=== PATIENT | female | born 1985 | race Caucasian/White ===

== ENCOUNTER → 2019-07-02 09:38 | Outpatient (CLI) | payer OTHER, MEDICAID, SELFPAY ==
--- NOTE | 2019-07-02 09:44 | DI.US.S_ITS ---
PROCEDURE: US OB <= 14 WEEKS FETUS INDICATIONS: DATES OUTSIDE/PRIOR DATING DATA: First dating scan (date and location): 07/02/19. Estimated date of delivery (BASSAM) from first dating scan: 01/06/20. TECHNIQUE: Real-time scanning was performed of the fetus and maternal pelvic organs, with image documentation. Endovaginal scanning was also performed to better visualize the fetus and maternal ovaries. COMPARISON: None. FINDINGS: Embryo: Based on BPD, head circumference, abdominal circumference and femur length the composite gestational age today is 13 weeks 1 day corresponding to some BASSAM of 01/06/20. Heart rate measures 147 beats per minute. Marginal placenta previa is present at this time. Measurement variability in dating: +/- 4 weeks by LMP, +/- 7 days by mean sac diameter (use before 6 weeks gestation if crown-rump length not able to be measured), +/- 5 days by crown-rump length (up to 8 weeks 6 days gestation), +/- 7 days by crown-rump length (up to 13 weeks 6 days gestation). Maternal organs: Adnexa within normal limits. Limited images through the kidneys demonstrate no hydronephrosis. IMPRESSION: 1. 13 week 1 day single living IUP corresponding to ultrasound BASSAM of 01/06/20. 2. Marginal placenta previa. Followup recommended. Dictated by: Arjun FROST Interpreted: Mel Gómez MD on 07/02/2019 at 10:33 Approved by: Mel Gómez M.D. on 07/02/2019 at 14:41
== END ==
PROVIDERS: Visit Provider Specialist
DX: Z34.81 Encounter for supervision of other normal pregnancy, first trimester (principal); Z3A.13 13 weeks gestation of pregnancy
CPT/HCPCS: 76801

== ENCOUNTER → 2019-07-08 11:36 | Outpatient (CLI) | payer OTHER, MEDICAID, SELFPAY ==
[2019-07-08 12:13] LABS: Add Manual Diff / Slide Review NO; Basophils Absolute Auto 0 /uL (0-100); Basophils Percent Auto 0.5 % (0-2); Eosinophils Absolute Auto 100 /uL (0-450); Eosinophils Percent Auto 0.7 % (2-4); Hematocrit 37.5 % (36-46); Hemoglobin 12.7 g/dL (12.0-16.0); Lymphocytes Absolute Auto 1300 /uL (1100-4500); Lymphocytes Percent Auto 16.6 % (25-40); Mean Corpuscular HGB Conc 33.8 % (30-36); Mean Corpuscular Hemoglobin 32.3 PG (26-34); Mean Corpuscular Volume 95.5 fL (80-100); Monocytes Absolute Auto 700 /uL (0-900); Monocytes Percent Auto 8.5 % (3-14); Neutrophils Absolute Auto 5700 /uL (1500-7000); Neutrophils Percent Auto 73.7 % (50-75); Platelet Count 233 X10^3/uL (150-400); Red Blood Cell Count 3.93 X10^6/uL (4.0-5.2); Red Cell Distribution Width 12.5 % (11.6-14.8); White Blood Cell Count 7.7 X10^3/uL (4.5-11.0)
[2019-07-08 12:28] LABS: Appearance Urine UA CLEAR; Bilirubin Urine UA NEGATIVE (NEGATIVE); Color Urine UA YELLOW; Glucose Urine UA NEGATIVE (Negative); Ketones Urine UA NEGATIVE (NEGATIVE); Leukocyte Esterase Urine UA NEGATIVE (NEGATIVE); Nitrite Urine UA NEGATIVE (Negative); Occult Blood Urine UA NEGATIVE (Negative); Protein Urine UA NEGATIVE (Negative); Specific Gravity Urine UA <=1.005 (1.000-1.035); Urobilinogen Urine UA 0.2 E.U./dL (0.2)
[2019-07-08 17:06] LABS: Hepatitis B Surface Antigen NEGATIVE s/c (NEGATIVE); Rubella Antibody IgG > 350.0 IU/mL (>15)
[2019-07-08 17:20] LABS: HIV 1 & 2 Ab/Ag 4th Gen Combo NEGATIVE (NEGATIVE); Hep C Virus Ab w/Reflex Quant NEGATIVE s/c (NEGATIVE)
[2019-07-10 20:02] LABS: RPR Screen Nonreactive (Nonreactive)
== END ==
PROVIDERS: PCP Specialist; Visit Provider Specialist
DX: Z34.81 Encounter for supervision of other normal pregnancy, first trimester (principal)
CPT/HCPCS: 36415; 80055; 81003; 86787; 86803; 86850; 86900; 86901; 87086; 87389

== ENCOUNTER → 2019-08-20 13:38 | Outpatient (CLI) | payer OTHER, MEDICAID, SELFPAY ==
--- NOTE | 2019-08-20 13:41 | DI.US.S_ITS ---
PROCEDURE: US OB >= 14 WEEKS FETUS INDICATIONS: ANATOMY SCAN OUTSIDE/PRIOR DATING DATA: First dating scan (date and location): 07/02/19. Estimated date of delivery (BASSAM) from first dating scan: 01/06/20. TECHNIQUE: Real-time scanning was performed of the fetus, with image documentation and biometric measurements. COMPARISON: [facility], , OB >= 14 WEEKS FETUS, 08/12/2019, 12:13. FINDINGS: General: A single living intrauterine gestation is present. Presentation: Transverse. Placenta: Placental position is anterior and lateral, without previa. Amniotic fluid index: 11.2 cm, normal range is 5-24 cm. heart rate: 145 beats per minute. Maternal cervical canal: 4.1 cm long. Normal lower limit is 2.5 cm. biometrics: Biparietal diameter: 19 weeks 3 days Head circumference: 19 weeks 4 days Abdominal circumference: 19 weeks 5 days Femur length: 19 weeks Estimated gestational age from initial scan: 20 weeks Composite gestational age from present scan: 19 weeks 3 days Estimated weight and percentile: 292 g; 13 percentile Measurement variability for biometric dating: +/- 7 days from 14 weeks to 15 weeks 6 days gestation, +/- 10 days from 16 weeks to 21 weeks 6 days gestation, +/- 2 weeks from 22 weeks to 27 weeks 6 days gestation, +/- 3 weeks for 28 weeks gestation or later. weight reference: 4500 g or EFW >90/95% is considered macrosomia or large for gestational age. EFW <10% is small for gestational age. EFW 5% or less is considered intra-uterine growth restriction. Anatomic survey: Neuro: Ventricles are non-dilated at less than 10 mm. Cisterna magna is normal at 3-11 mm. Cerebellum is normal in size and morphology. Nuchal skin fold: Normal at less than 6 mm between 14-21 weeks gestational age. Face: Nose and lips, facial profile are normal. Spine: No evidence for spina bifida. Heart: 4-chambered heart is present, with normal ventricular outflow tracts. Diaphragm: Diaphragm is intact. Stomach: Left-sided stomach is present. Kidneys: No hydronephrosis. Normal is less than 5 mm in 2nd trimester, less than 7 mm in 3rd trimester. Cord: 3-vessel cord has orthotopic insertion. Bladder: Normal in size. Extremities: All 4 extremities identified. IMPRESSION: 1. Single living demonstrating interval growth with estimated weight at the 13th percentile. Recommend attention on followup. 2. Normal anatomic survey. 3. Resolved marginal placenta previa. Dictated by: Arjun FROST Interpreted: Gio Jj MD on 08/20/2019 at 16:36 Approved by: Gio Jj M.D. on 08/20/2019 at 17:57
== END ==
PROVIDERS: PCP Specialist; Visit Provider Specialist
DX: Z34.82 Encounter for supervision of other normal pregnancy, second trimester (principal); Z3A.19 19 weeks gestation of pregnancy
CPT/HCPCS: 76811

== ENCOUNTER → 2019-09-17 09:19 | Outpatient (CLI) | payer OTHER, MEDICAID, SELFPAY ==
[2019-09-17 11:18] LABS: Hematocrit 34.5 % (36-46)
[2019-09-17 11:23] LABS: GTT (PREG) 1 Hour PP 50gm Dose 102 mg/dL (76-139)
== END ==
PROVIDERS: PCP Specialist; Visit Provider Specialist
DX: Z3A.23 23 weeks gestation of pregnancy (principal); Z34.92 Encounter for supervision of normal pregnancy, unspecified, second trimester
CPT/HCPCS: 36415; 82950; 85014; 85018

== ENCOUNTER → 2019-12-08 11:43 | Outpatient (CLI) | payer OTHER, MEDICAID, SELFPAY ==
[2019-12-09 11:22] LABS: Strep Grp B PCR NEG for Grp B Strep
== END ==
PROVIDERS: PCP Specialist; Visit Provider Specialist
DX: Z34.83 Encounter for supervision of other normal pregnancy, third trimester (principal); Z3A.35 35 weeks gestation of pregnancy
CPT/HCPCS: 87653

== ENCOUNTER 2020-01-11 19:15 | Inpatient (IN) | payer OTHER, MEDICAID, SELFPAY ==
[2020-01-11 19:50] VITALS: BP 152/91
--- NOTE | 2020-01-11 20:33 | PM.OBHP.1 ---
OB HPI Date/Time Date of admission: 01/11/20 Date Patient Seen: 01/11/20 Time Patient Seen: 20:33 History of Present Condition Chief complaint: : 4 Para: 2 Estimated Date of Delivery: 01/06/20 Estimated Gestational Age (weeks): 40 Narrative: Alysia Ramsey is a 34 year old female admitted in active labor History of Present care: good care, initiated at week # (14), number of visits (12) and pounds weight gain (21) Dating criteria: based on 1st trimester US only Ultrasounds: normal mid trimester US Obstetrical complications: none Medical complications: none Preadmission Labs Blood type: A (+) positive -: Antibody screen: negative, GBS status: negative, HBsAG: negative, HIV: negative and RPR/VDLR: negative -: Chlamydia screen: not detected and Gonorrhea screen: not detected -: Rubella: immune and Varicella: immune HCAB: negative PAP: 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) 1 hr GTT: 102 Prior (ies) History: 02/02/2013 39 week gestation male 6 lb 12 oz spontaneous vaginal delivery with Pitocin 04/12/2017 40 weeks 6 lb 14 oz female infant spontaneous vaginal delivery Evaluation Evaluation Baseline heart rate: 130 Variability: Moderate (11-25) monitor accelerations: Present monitor decelerations: Absent Contraction Frequency (minutes): 3 Uterine Contraction Intensity: Strong/Firm Category of Tracing: I Cervical dilation (cm): 6 Cervical effacement (%): 100 station: -4 Non-invasive Membranes Rupture Test: positive PFSH Family History (Updated 07/09/19 @ 12:40 by Cindy Watson) Father Hypertension Hyperlipidemia Stroke Mother Hypertension Grandmother Colon cancer Grandfather Hypertension Grandmother Cancer Social History Smoking Status: Never smoker Meds Home Medications and Allergies Home Medications Medication Instructions Recorded Confirmed Type prenat.vits,swetha,[id number] 1 tab PO DAILY 07/08/19 01/11/20 History Allergies Allergy/AdvReac Type Severity Reaction Status Date / Time No Known Drug Allergies Allergy Verified 01/11/20 19:49 Review of Systems Review of Systems Narrative: Patient denies headaches, scotomata, epigastric pain. She woke with trickling of fluid at 6:00 a.m.. She started having increased strength of contractions at 3:00 p.m. today. Good movement. ROS: Yes All systems reviewed with the patient and are negative except as otherwise documented Exam Vital Signs (past 8 hours): Blood pressure 139/82, pulse of 56, temperature 98.5?- 01/11/20 19:50 Blood Pressure 152/91 H Narrative Exam Narrative: HEENT exam within normal limits. Lungs are clear to auscultation percussion. Heart is regular rate and rhythm no S3-S4 or murmurs. Abdomen is gravid. Fetus is vertex. Extremities without edema, nontender. Assessment and Plan Assessment and Plan Assessment and Plan narrative: Term with spontaneous rupture membranes in active labor. Anticipate vaginal delivery.
[2020-01-11 20:41] LABS: Add Manual Diff / Slide Review NO; Basophils Absolute Auto 0 /uL (0-100); Basophils Percent Auto 0.4 % (0-2); Eosinophils Absolute Auto 0 /uL (0-450); Eosinophils Percent Auto 0.3 % (2-4); Hematocrit 38.5 % (36-46); Hemoglobin 12.5 g/dL (12.0-16.0); Lymphocytes Absolute Auto 2200 /uL (1100-4500); Lymphocytes Percent Auto 19.6 % (25-40); Mean Corpuscular HGB Conc 32.4 % (30-36); Mean Corpuscular Hemoglobin 28.3 PG (26-34); Mean Corpuscular Volume 87.2 fL (80-100); Monocytes Absolute Auto 900 /uL (0-900); Neutrophils Absolute Auto 7900 /uL (1500-7000); Neutrophils Percent Auto 71.7 % (50-75); Platelet Count 232 X10^3/uL (150-400); Red Blood Cell Count 4.41 X10^6/uL (4.0-5.2); Red Cell Distribution Width 13.6 % (11.6-14.8); White Blood Cell Count 11.1 X10^3/uL (4.5-11.0)
--- NOTE | 2020-01-11 22:38 | P.PCNOB_ITS ---
Labor & Delivery Delivery date: 01/11/20 Intrapartal events: None Delivery monitor: external FHT and external uterine Route of delivery: L&D Laceration Description: None Estimated blood loss (mL): 100 Anesthesia type: None Narrative: Patient arrived on Labor and delivery in active labor. She had intermittent monitoring that was reassuring. She had a very quick 2nd stage of labor. She delivered spontaneously, over an intact perineum a viable female infant who was placed on the maternal abdomen. There was a nuchal cord that was released after the baby was delivered. After the cord stopped pulsating the cord was clamped, cut, and cord bloods obtained. The placenta delivered spontaneously, intact, with 3 vessels. There were no cervical, vaginal, or ainsley krissy tears. Both mother doing well. Baby 1: Infant gender: Female Presentation: vertex position: Right Occiput Anterior Placenta delivery description: Spontaneous cord vessel description: Nuchal Cord score (1 min): 9 score (5 min): 9 Plan for aftercare: Routine care
[2020-01-11] MEDS: IBUPROFEN 600 MG TABLET PO (23:34)
[2020-01-11] MEDS: ACETAMINOPHEN 325 MG TABLET 650 MG PO (23:34)
[2020-01-12 06:48] LABS: Add Manual Diff / Slide Review NO; Basophils Absolute Auto 0 /uL (0-100); Basophils Percent Auto 0.4 % (0-2); Eosinophils Absolute Auto 0 /uL (0-450); Eosinophils Percent Auto 0.2 % (2-4); Hematocrit 34.9 % (36-46); Hemoglobin 11.4 g/dL (12.0-16.0); Lymphocytes Absolute Auto 1700 /uL (1100-4500); Lymphocytes Percent Auto 14.2 % (25-40); Mean Corpuscular HGB Conc 32.7 % (30-36); Mean Corpuscular Hemoglobin 28.5 PG (26-34); Mean Corpuscular Volume 87.2 fL (80-100); Monocytes Absolute Auto 1000 /uL (0-900); Monocytes Percent Auto 8.8 % (3-14); Neutrophils Absolute Auto 9000 /uL (1500-7000); Neutrophils Percent Auto 76.4 % (50-75); Platelet Count 212 X10^3/uL (150-400); Red Cell Distribution Width 12.9 % (11.6-14.8); White Blood Cell Count 11.8 X10^3/uL (4.5-11.0)
--- NOTE | 2020-01-12 16:19 | PM.OBDS.1 ---
Discharge Providers Provider Date of admission: 01/11/20 19:15 Discharge Date: 01/12/20 Primary care physician: Edith Alfaro MD Consults: 01/12/20 22:34 Consult to [employer] Routine Comment: Discharge provider: Edith Alfaro MD Summary Hospital Course Date Patient Seen: 01/12/20 Time Patient Seen: 16:19 Procedures: Spontaneous vaginal delivery Hospital Course: Patient arrived on Labor and delivery in active labor. She had a spontaneous vaginal delivery of a viable female weighing 6 lb 6 oz. She denies any headaches, scotomata, epigastric pain. She is urinating and ambulating well. She is breast-feeding without difficulty. Peripartum Data Infant Delivery Method: Natural Vaginal Laceration description: None Procedures: Spontaneous vaginal delivery complications: none [place] 1: Gender: Female Disposition of : home Discharge Diagnosis (1) Vaginal delivery: Status: Acute Status at Discharge Cognitive/behavioral status at discharge: oriented Functional status at discharge: independent ambulation Overall status at discharge: patient is progressing back to baseline Time Spent with Patient Time attestation: Total time spent providing and/or coordinating discharge services: Time spent: Less than 30 minutes Objective Labs Result Diagrams: 01/12/20 06:32 Labs: Laboratory Results - last 24 hr 01/11/20 01/11/20 01/12/20 20:00 20:00 06:32 WBC 11.1 H 11.8 H RBC 4.41 4.00 Hgb 12.5 11.4 L Hct 38.5 34.9 L MCV 87.2 87.2 MCH 28.3 28.5 MCHC 32.4 32.7 RDW 13.6 12.9 Plt Count 232 212 Neut % (Auto) 71.7 76.4 H Lymph % (Auto) 19.6 L 14.2 L Door % (Auto) 8.0 8.8 Eos % (Auto) 0.3 L 0.2 L Baso % (Auto) 0.4 0.4 Neut # (Auto) 7900 H 9000 H Lymph # (Auto) 2200 1700 Door # (Auto) 900 1000 H Eos # (Auto) 0 0 Baso # (Auto) 0 0 Blood Type A Positive Antibody Screen Negative Exam Vital Signs (past 8 hours): Blood pressure 116/60, pulse of 58, temperature 98.7? Narrative Exam Narrative: Abdomen is soft, nontender. Uterus is firm, U -2, nontender. Mild lochia. Extremities without edema and nontender. Patient is blood type is Rh positive, she is rubella immune, she received the Tdap in the 3rd trimester. Discharge Plan Discharge Plan Patient Disposition: Home Discharge orders & Medications Prescriptions: Continued prenat.vits,swetha,[id number] Tablet 1 tab PO DAILY RF: 0 Follow up/Referrals: Edith Alfaro MD [Primary Care Provider] - 1 Month Diet/Activity/Treatments Diet: Regular Activity: Nothing in vagina for 4 weeks Skin/Wound/Dressing Care Report to your healthcare provider any signs of infection, such as:: chills, fever and increased pain Discharge Data Primary Care Provider: Edith Alfaro
[2020-01-12 17:01] VITALS: BP 152/91; PULSE 88; RESP 18; TEMP 36.9
== END 2020-01-12 18:50 | disposition home or self-care (01) | DRG 560 ==
PROVIDERS: Admitting Provider Obstetrics & Gynecology; PCP Specialist; Referring Provider Obstetrics & Gynecology; Visit Provider Obstetrics & Gynecology
DX: O69.81X0 Labor and delivery complicated by cord around neck, without compression, not applicable or unspecified (principal); Z3A.40 40 weeks gestation of pregnancy; Z37.0 Single live birth
CPT/HCPCS: 36415; 59409; 84112; 85025; 86850; 86900; 86901; G0379

== ENCOUNTER → 2021-03-15 07:43 | Outpatient (CLI) | payer OTHER, MEDICAID, SELFPAY ==
[2021-03-15 08:08] LABS: Add Manual Diff / Slide Review NO; Basophils Absolute Auto 0 /uL (0-100); Basophils Percent Auto 0.6 % (0-2); Eosinophils Absolute Auto 100 /uL (0-450); Eosinophils Percent Auto 1.5 % (2-4); Hematocrit 39.1 % (36-46); Hemoglobin 13.4 g/dL (12.0-16.0); Lymphocytes Absolute Auto 1900 /uL (1100-4500); Lymphocytes Percent Auto 24.1 % (25-40); Mean Corpuscular HGB Conc 34.1 % (30-36); Mean Corpuscular Hemoglobin 32.4 PG (26-34); Mean Corpuscular Volume 94.8 fL (80-100); Monocytes Absolute Auto 600 /uL (0-900); Monocytes Percent Auto 7.6 % (3-14); Neutrophils Absolute Auto 5200 /uL (1500-7000); Neutrophils Percent Auto 66.2 % (50-75); Platelet Count 235 X10^3/uL (150-400); Red Blood Cell Count 4.13 X10^6/uL (4.0-5.2); Red Cell Distribution Width 12.3 % (11.6-14.8); White Blood Cell Count 7.9 X10^3/uL (4.5-11.0)
[2021-03-15 08:21] LABS: Alanine Aminotransferase 16 IU/L (<35); Albumin 4.2 g/dL (3.5-5.0); Albumin Globulin Ratio 1.6 (1.0-2.8); Alkaline Phosphatase 45 U/L (38-126); Aspartate Aminotransferase 23 IU/L (14-36); BUN Creatinine Ratio 13.3 (6-22); Bilirubin Total 0.5 mg/dL (0.2-1.3); Blood Urea Nitrogen 10 mg/dL (7-17); Calcium 9.3 mg/dL (8.4-10.2); Carbon Dioxide 26 mmol/L (22-32); Chloride 103 mmol/L (98-107); Cholesterol 174 mg/dL (140-199); Estimated Glomerular Filt Rate > 60.0 mL/min (>60); Globulin 2.6 g/dL (1.7-4.1); Glucose 91 mg/dL (70-100); HDL Cholesterol 55 mg/dL (40-60); HEMOLYSIS < 15 (0-50); LDL Cholesterol Calculated 105 mg/dL (<100); Potassium 3.7 mmol/L (3.4-5.1); Sodium 136 mmol/L (137-145); Total Protein 6.8 g/dL (6.3-8.2); Triglycerides 72 mg/dL (35-150)
[2021-03-15 08:51] LABS: Thyroid Stimulating Hormone 2.12 uIU/mL (0.47-4.68)
== END ==
PROVIDERS: PCP Family Medicine; Referring Provider Family Medicine; Visit Provider Family Medicine
DX: Z00.00 Encounter for general adult medical examination without abnormal findings (principal); Z82.3 Family history of stroke; Z82.49 Family history of ischemic heart disease and other diseases of the circulatory system
CPT/HCPCS: 36415; 80053; 80061; 84443; 85025